=== PATIENT | female | born 1985 | race Two or more races ===

== ENCOUNTER 2023-05-18 18:06 | Emergency (ER) | payer OTHER ==
[~2023-05-18] VITALS: Ht 162.6 cm; Wt 136.1 kg
[2023-05-18] MEDS ORDERED: COZAAR50 MG PO (18:26)
[2023-05-18] MEDS ORDERED: SINGULAIR10 MG PO (18:27)
[2023-05-18] MEDS ORDERED: GLUMETZA1000 MG PO (18:27)
== END 2023-05-18 22:29 | disposition home or self-care (01) ==
LOC: ER 18:07
PROVIDERS: General Practice
DX: J06.9 Acute upper respiratory infection, unspecified (principal); J45.909 Unspecified asthma, uncomplicated; Z20.822 Contact with and (suspected) exposure to COVID-19

== ENCOUNTER 2023-06-16 15:00 | Emergency (ER) | payer OTHER ==
[~2023-06-16] VITALS: Ht 167.6 cm; Wt 131.5 kg
[~2023-06-16 15:00] MED LIST: COZAAR50 MG PO; GLUMETZA1000 MG PO; SINGULAIR10 MG PO
[2023-06-16 16:53] LABS: HEMATOCRIT 37.5 % (36.0-45.00); HEMOGLOBIN 12.8 g/dL (12.0-15.00); MEAN CORPUSCULAR HEMOGLOBIN 27.2 pg (27.00-32.0); PLATELET COUNT 375 K/uL (150-450); RED BLOOD COUNT 4.69 M/uL (4.00-6.00); RED CELL DISTRIBUTION WIDTH 14.6 % (11.5-14.5)
[2023-06-16 17:00] LABS: CALCIUM 8.9 mg/dL (8.5-10.1); CREATININE SERUM 0.83 mg/dL (0.55-1.02); GFR 76.14; POTASSIUM 3.42 mEq/L (3.5-5.1)
[2023-06-16] MEDS ORDERED: INTESTINEX680 M1 PO (18:22)
[2023-06-16] MEDS ORDERED: ZOFRAN8 MG PO (18:22)
[2023-06-16] MEDS ORDERED: ACID REDUCER20 M1 PO (18:22)
== END 2023-06-16 18:27 | disposition home or self-care (01) ==
LOC: ER 15:00
PROVIDERS: Nurse Practitioner Family
DX: R10.13 Epigastric pain (principal); Z91.013 Allergy to seafood; I10 Essential (primary) hypertension; J45.909 Unspecified asthma, uncomplicated; E11.9 Type 2 diabetes mellitus without complications; Z79.84 Long term (current) use of oral hypoglycemic drugs

== ENCOUNTER 2023-11-18 17:58 | Emergency (ER) | payer OTHER ==
[~2023-11-18] VITALS: Ht 170.2 cm; Wt 104.3 kg
[~2023-11-18 17:58] MED LIST changes: +ACID REDUCER20 M1 PO; +INTESTINEX680 M1 PO; +ZOFRAN8 MG PO
[2023-11-18] MEDS ORDERED: ACETAMINOPHEN 500 MG GEL..CAP PO ONE (21:15)
[2023-11-18 22:13] LABS: HEMATOCRIT 39.3 % (36.0-45.00); MEAN CELL VOLUME 79.4 fL (80.00-100.00); MEAN CORPUSCULAR HEMOGLOBIN 26.2 pg (27.00-32.0); PLATELET COUNT 363 K/uL (150-450); RED BLOOD COUNT 4.95 M/uL (4.00-6.00); RED CELL DISTRIBUTION WIDTH 14.8 % (11.5-14.5)
[2023-11-18 22:50] LABS: CALCIUM 9.2 mg/dL (8.5-10.1); CREATININE SERUM 0.7 mg/dL (0.55-1.02); GFR 92.68; POTASSIUM 3.76 mEq/L (3.5-5.1)
== END 2023-11-18 23:05 | disposition home or self-care (01) ==
LOC: ER 17:58
PROVIDERS: General Practice
DX: U07.1 COVID-19 (principal); J45.909 Unspecified asthma, uncomplicated; Z88.0 Allergy status to penicillin; I10 Essential (primary) hypertension; E11.9 Type 2 diabetes mellitus without complications; Z79.84 Long term (current) use of oral hypoglycemic drugs